=== PATIENT | female | born 1975 | race Caucasian/White ===

== ENCOUNTER 2021-05-31 10:23 | Emergency (ER) | payer MEDICAID ==
[2021-05-31 11:14] LABS: CALCIUM 8.9 mg/dL (8.5-10.3); CREATININE 0.6 mg/dL (0.4-1.0); POTASSIUM 3.8 mmol/L (3.5-5.0)
--- NOTE | 2021-05-31 11:24 | ED Physician Documentation ---
History of Present Illness - Stated complaint Stated Complaint: HIGH BP - Chief complaint Chief Complaint: Cardiac - History obtained from History obtained from: Patient - Additonal information Additional information: 45 yo woman with hx of HTN, stopped atenolol 2 yrs ago as it made her groggy. Also hx heroin use on methadone and hep C. Noted elevated BP on Thursday at methadone clinic = 179/107. No KOHLI, CP, SOA, N/V. Review of Systems Constitutional: denies: Fever, Chills Cardiac: denies: Chest pain / pressure, Palpitations Respiratory: denies: Dyspnea, Cough GI: denies: Abdominal Pain, Nausea, Vomiting PD PAST MEDICAL HISTORY - Present Medications Home Medications: Ambulatory Orders Medication Instructions Recorded Confirmed Atenolol [Tenormin] 50 mg PO DAILY #30 tablet 05/31/21 - Allergies Allergies/Adverse Reactions: Allergies Allergy/AdvReac Type Severity Reaction Status Date / Time No Known Drug Allergies Allergy Verified 05/31/21 10:40 PD ED PE NORMAL - Vitals Vital signs reviewed: Yes - General General: Alert and oriented X 3, No acute distress - Neck Neck: Supple, no meningeal sign, No bony TTP - Cardiac Cardiac: RRR, No murmur - Respiratory Respiratory: No respiratory distress, Clear bilaterally - Abdomen Abdomen: Normal bowel sounds, Soft, Non tender - Back Back: No CVA TTP, No spinal TTP - Derm Derm: Normal color, Warm and dry - Extremities Extremities: No edema, No calf tenderness / cord - Neuro Neuro: Alert and oriented X 3, Normal speech Results - Vitals Vitals: Vital Signs - 24 hr 05/31/21 05/31/21 10:36 11:08 Temperature 36.9 C 36.8 C Heart Rate 92 89 Respiratory 11 L 14 Rate Blood Pressure 196/106 H 171/99 H O2 Saturation 97 93 Oxygen O2 Source Room air - EKG (time done) 1044 Rate: Rate (enter#) (85) Rhythm: NSR [place]: Normal Intervals: Normal [place] QRS: Normal Ischemia: Non specific changes. No: ST elevation c/w ischemia, ST depression Computer interpretation: Agree with computer - Labs Labs: Laboratory Tests 05/31/21 11:00 Sodium 135 Potassium 3.8 Chloride 97 L Carbon Dioxide 28 Anion Gap 10.0 BUN 8 Creatinine 0.6 Estimated GFR (MDRD) 109 Glucose 113 H Calcium 8.9 PD MEDICAL DECISION MAKING - ED course ED course: 45-year-old woman presents with asymptomatic hypertension in the setting of medication noncompliance and not following up with primary care. She is restarted on atenolol at her request we discussed if she wanted to try something else since she did have side effects with it previously but she did want to go ahead with atenolol and we discussed the importance of primary care follow-up. Departure - Departure Disposition: Home, Self Care Clinical Impression: Hypertension Qualifiers: Hypertension type: primary hypertension Qualified Code(s): I10 - Essential (primary) hypertension Condition: Stable Record reviewed to determine appropriate education?: Yes Instructions: ED HTN Established Follow-Up: Aryan Short DO [Provider Admit Priv/Credential] - Prescriptions: Atenolol [Tenormin] 50 mg PO DAILY #30 tablet Comments: I sent your prescription electronically to [facility] [place]. Follow-up with primary care, the physician on-call for ER follow-ups is listed on this form and you can call him or whoever you would like. Return for new or worsening symptoms. You probably will need to take blood pressure medication in the long-term, and do need to have it rechecked with primary care to see if it is the appropriate dose we are starting.
[2021-05-31 11:34] VITALS: BP 193/115
== END 2021-05-31 11:34 | disposition home or self-care (01) ==
LOC: ED 10:23
DX: I10 Essential (primary) hypertension (principal); T44.7X6A Underdosing of beta-adrenoreceptor antagonists, initial encounter; Z91.128 Patient's intentional underdosing of medication regimen for other reason
CPT/HCPCS: 36415; 80048; 93005; 99283